=== PATIENT | male | born 1995 | race Caucasian/White ===

== ENCOUNTER 2017-05-17 09:59 | Emergency (ER) | payer OTHER ==
[2017-05-17 10:21] VITALS: BP 125/75
--- NOTE | 2017-05-17 11:02 | UC ---
Skin Complaint HPI - HPI Summary HPI Summary: Patient has had red bumps on legs and hip, some have developed white heads, some are painful. he has been using fungal cream without improvment. - History of Current Complaint Hx Obtained From: Patient Onset/Duration: Sudden Onset, Lasting Weeks Skin Exposure Onset/Duration: Weeks Ago Timing: Constant Onset Severity: Moderate Current Severity: Moderate Location: Diffuse - right lower extremity Character: Redness Aggravating Factor(s): Nothing Alleviating Factor(s): Nothing Associated Signs & Symptoms: Positive: Rash <Yesenia Garnett - Last Filed: 05/17/17 10:57> <Rose Giang - Last Filed: 05/17/17 11:05> - History of Current Complaint Chief Complaint: [facility] Time Seen by Provider: 05/17/17 10:52 Stated Complaint: RASH BILATERAL LEG - Allergy/Home Medications Allergies/Adverse Reactions: Allergies Allergy/AdvReac Type Severity Reaction Status Date / Time No Known Allergies Allergy Verified 05/17/17 10:13 Review of Systems Constitutional: Negative Skin: Rash Eyes: Negative ENT: Negative Respiratory: Negative Cardiovascular: Negative Gastrointestinal: Negative Genitourinary: Negative Motor: Negative Neurovascular: Negative Musculoskeletal: Negative Neurological: Negative Psychological: Negative Is Patient Immunocompromised?: No All Other Systems Reviewed And Are Negative: Yes <Yesenia Garnett - Last Filed: 05/17/17 10:57> PMH/Surg Hx/FS Hx/Imm Hx Previously Healthy: Yes - Surgical History Surgical History: Yes Surgery Procedure, Year, and Place: Right Shoulder Labrum, 2017, [place], [place] - Family History Known Family History: Positive: Hypertension Negative: Cardiac Disease, Diabetes - Social History Alcohol Use: Weekly Alcohol Amount: few times a week Substance Use Type: Marijuana Substance Use Comment - Amount & Last Used: Weekly Smoking Status (MU): Never Smoked Tobacco - Immunization History Most Recent Influenza Vaccination: Not the 2016/2017 Season <Yesenia Garnett - Last Filed: 05/17/17 10:57> Physical Exam Triage Information Reviewed: Yes Appearance: Well-Appearing, Well-Nourished, Pain Distress Vital Signs: Initial Vital Signs Temp 97.9 F 05/17/17 10:09 Pulse 70 05/17/17 10:09 Resp 16 05/17/17 10:09 BP 125/75 05/17/17 10:09 Pulse Ox 100 09/25/17 10:09 Vital Signs Reviewed: Yes Eye Exam: Normal ENT Exam: Normal Dental Exam: Normal Neck exam: Normal Respiratory Exam: Normal Cardiovascular Exam: Normal Abdominal Exam: Normal Bowel Sounds: Positive: Present Musculoskeletal Exam: Normal Neurological Exam: Normal Psychological Exam: Normal Skin: Positive: rashes - patient has red bumps and some with white heads diffuse on right thigh <Yesenia Garnett - Last Filed: 05/17/17 10:57> Vital Signs: Initial Vital Signs Temp 97.9 F 05/17/17 10:09 Pulse 70 05/17/17 10:09 Resp 16 05/17/17 10:09 BP 125/75 05/17/17 10:09 Pulse Ox 100 05/17/17 10:09 <Rose Giang - Last Filed: 05/17/17 11:05> Course/Dx - Course Course Of Treatment: hx obtained, exam performed ,meds reviewed, treated for folliculitis - Differential Diagnoses - Skin Complaint Differential Diagnoses: Cellulitis, Tinea, Urticaria - Diagnoses Provider Diagnoses: folliculitis <Yesenia Garnett - Last Filed: 05/17/17 10:57> Discharge <Yesenia Garnett - Last Filed: 05/17/17 10:57> <Rose Giang - Last Filed: 05/17/17 11:05> - Discharge Plan Condition: Stable Disposition: HOME Prescriptions: Cephalexin CAP* [Keflex CAP*] 500 mg PO TID #21 cap Patient Education Materials: Folliculitis (ED) Referrals: Non Staff,Doctor [Primary Care Provider] - Additional Instructions: 1. take the medication as prescribed. 2. Stop the fungal cream 3. Wash the area gently and daily Follow up if symtpoms worsen Attestation Statement User Type: Provider - I was available for consult. This patient was seen by the MARCOS. The patient was not presented to, seen by, or examined by me. -Shea <Rose Giang - Last Filed: 05/17/17 11:05>
== END 2017-05-17 11:15 | disposition home or self-care (01) ==
LOC: UCCORT 09:59
DX: L73.9 Follicular disorder, unspecified (principal)
CPT/HCPCS: 99212; G0463

== ENCOUNTER 2017-09-27 11:03 | Emergency (ER) | payer OTHER ==
[2017-09-27 12:47] VITALS: BP 130/83
== END 2017-09-27 13:09 | disposition left against medical advice (07) ==
LOC: UCCORT 11:03
DX: J02.9 Acute pharyngitis, unspecified (principal); R05 Cough; Z53.21 Procedure and treatment not carried out due to patient leaving prior to being seen by health care provider

== ENCOUNTER 2019-01-02 10:32 | Emergency (ER) | payer BC, OTHER ==
[2019-01-02 10:45] VITALS: BP 146/85
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
== END 2019-01-02 11:45 | disposition home or self-care (01) ==
LOC: UCCORT 10:32
DX: S90.32XA Contusion of left foot, initial encounter (principal); Y04.2XXA Assault by strike against or bumped into by another person, initial encounter; Y92.89 Other specified places as the place of occurrence of the external cause; R03.0 Elevated blood-pressure reading, without diagnosis of hypertension
CPT/HCPCS: 99213; G0463